=== PATIENT | male | born 1990 | race Caucasian/White ===

== ENCOUNTER 2016-12-02 09:02 | Day surgery (SDC) | payer OTHER ==
[~2016-12-02] VITALS: Ht 193 cm; Wt 108.0 kg
[2016-12-02] VITALS (12 sets, daily range): BP systolic 122–134; BP diastolic 55–87; PULSE 75–87; RESP 13–19; O2SAT 96–100
[~2016-12-02 09:02] MED LIST: CeFAZolin Inj 2 GM in IV Premix 1 EACH IV ONE; IBUP200C PO; Lactated Ringer's 1,000 ML IV SCH
[2016-12-02] MEDS ORDERED: Ondansetron 2 mg/mL 2 mL Inj ONE (09:03)
[2016-12-02] MEDS ORDERED: Propofol 10,000 mCg/mL 20 mL Inj ONE (09:03)
[2016-12-02] MEDS ORDERED: fentaNYL-PF 50 mCg/mL 2 mL Inj ONE (09:03)
[2016-12-02] MEDS ORDERED: Dexamethasone 4 mg/mL Inj ONE (09:03)
[2016-12-02] MEDS ORDERED: Lidocaine PF 1% 30 mL Inj ONE (09:03)
[2016-12-02] MEDS ORDERED: Lactated Ringer's 1,000 ML IV ONE (09:55)
--- NOTE | 2016-12-02 10:07 | PCM.HPANE ---
Patient Data Date of Service: Dec 02, 2016 Surgeon Admitting Provider: Attending Provider:Darvin Brito MD Primary Care Physician:Lukas Other Provider:Julia Bentley Anesthesia Reason for Visit Right Knee Meniscus Tear Ht/WT & BMI Height (Feet): 6 Height (Inches): 4.00 Weight (Kilograms): 108.040 Body Mass Index 29.00 Allergies Coded Allergies: nickel (Verified Allergy, Unknown, contact dermatitis, 11/27/16) Past Anesthesia History Anesthesia History: Denies:: Abnormal Airway, Anesthesia Reactions, Difficult Intubation, Fam Anesthesia Reaction Diabetes History Hx Diabetes?: No MRSA MRSA: No Medications Hypertension Medication: No Home Meds Incl Beta Munira: No Reported Medications Ibuprofen 200 Mg [id number] Mg PO QID PRN For Pain Ref 0 11/27/16 History History of ENT Problems?: No HEENT History: Denies:: Abnormal Airway Cataracts Difficult Intubation Dysphagia Glaucoma Hearing Problem Sinus Problem TMJ Hx of Heart Problems?: No Cardiovascular History: Denies:: AICD Abdominal Aortic Aneurism Atrial Fibrillation Chest Pain Congestive Heart Failure Coronary Artery Disease Edema Heart Murmur Hypertension Irregular Heartbeat Pacemaker Peripheral Vascular Hx of Respiratory Problem?: No Respiratory History: Positive for:: Asthma (as child, not currently sx) Denies:: COPD Emphysema Oxygen Administration Pneumonia Tuberculosis Use of C-PAP Machine Use of Inhalers / NEBS Hx Neurologic Problems?: No Neurological History: Denies:: Alzheimer's Disease CVA Dementia Dizziness Headaches Multiple Sclerosis Parkinson's Disease Seizures TIA Hx of GI Problems?: No Gastrointestinal History: Denies:: Cirrhosis Gall Bladder Disease Gastroesphageal Reflux Gastrointestinal Bleeding Heartburn Hepatitis Hiatal Hernia Liver Disease Hx of Problems?: No Genitourinary History: Denies:: Kidney Stones Urinary Tract Infection Male Hx: Denies:: Prostate Problems Scrotal Mass Skin History: Denies:: History Skin Disorders? Pressure Ulcers Hx Musculoskeletal Problems?: Yes Musculoskeletal History: Positive for:: Back Injury (back pain) Musculoskeletal Trauma (right knee current admission problem) Osteoarthritis Denies:: Degenerative Joint Fibromyalgia Joint Replacement Myasthenia Gravis Hx of Psycho/Social Problems?: No Psycho Social History: Denies:: Anxiety Hx Depression Hx Surgeries?: Yes (right ankle surgery) Hx Any Other Health Problems?: Yes Other History: Denies:: Cancer Thyroid Disease History Blood Transfusions: Positive for:: Accept Blood Products? Denies:: Blood Transfusions Hx Diabetes: No Hx Alcohol Use: NoHx Substance Use: NoHave You Smoked inLast 12 mo: Yes ( less than 1/2 pack day) Stop/Bang S-Snoring: Do You Snore Loudly: No T-Tired: feel tired, fatigued: No O-Obsered: Observed not breath: No P-Blood Pressure: treated: No B- Body Mass Index > 35 kg/m2: No A- Age over 50: No N- Neck Large Circumference: No G- Gender Male: Yes AMINA Total Score: 1 AMINA Risk Assessment: Low Risk, <3 Yes Risk Assessment Category Category 1A: Patient has history of documented sleep apnea, and HAS NOT received any narcotic, sedative or anesthesia administration during this stay. Category 1B: Patient has history of documented sleep apnea, and HAS received any narcotic , sedative or anesthesia administration during this stay Category 2: Patient has SUSPECTED Obstructive Sleep Apnea, and HAS received any narcotic , sedative or anesthesia administration during this stay. Category 3: Patient has SUSPECTED Obstructive Sleep Apnea and HAS NOT received narcotic, sedative or anesthesia administration during this stay. Category 4: Outpatient in Procedural Areas with known sleep apnea or who screen positive for High Risk via the STOP/BANG questionnaire. Exam Exam Vital Signs Vital Signs Date Time Temp Pulse Resp B/P Pulse Ox O2 Delivery O2 Flow Rate FiO2 12/02/16 09:56 35.8 87 18 134/80 98 Room Air General Appearance: Alert, Oriented X3, Cooperative, No Acute Distress HEENT/AIRWAY: MP 2 Lungs: Clear to Auscultation, Normal Air Movement Heart: Exam Unremarkable, Regular Rate/Rhythm, No Murmurs/Rubs/Gallops Meds/Labs/Diagnostics Admission Meds Current Medications Lactated Ringer's (Lr) 1,000 ml @ ud STK-MED ONCE IV Last administered on 12/02t 09:55; Start 12/02/16 at 09:55; Stop 12/02/16 at 09:56; Status DC Plan Impression Patient chart reviewed, patient interviewed and anesthestic plan with risks, benefits, and alternatives discussed, and informed consent obtained. NPO Status: 12/01@2100, water @0700 ASA Physical Status: ASA2 Mod Systemic Disease Anesthetic Plan: GA Bene/Risks/Altern/Consents: Yes HP Complete Prior to Induction: Yes Reese Deng MD 15, 2017 10:07
[2016-12-02] MEDS ORDERED: HYDROcodone-APAP 5-325 mg Tablet PO PRN (10:10)
[2016-12-02] MEDS ORDERED: Ketorolac 15 mg/mL Inj IVPUSH ONE (10:10)
--- NOTE | 2016-12-02 10:12 | PCM.ORTHOP ---
Orthopedic Operative Report Date of Service: Dec 02, 2016 Pre Operative Diagnosis right knee medial meniscus tear Post Operative Diagnosis same Procedure Right knee arthroscopy, partial medial meniscectomy, chondroplasty, partial synovectomy Surgeon Surgeon: Darvin Brito MD Assistants: None Indication for Procedure Right knee medial meniscus tear Findings Per dictation Details of Procedure - right knee arthroscopy, -right knee, partial medial meniscectomy -right knee, chondroplasty -right knee, partial synovectomy INDICATIONS: Clinton Tracy is a 26-year-old male who has had a history of right knee pain. The patient has failed conservative management. X-rays show the tibiofemoral joints to be preserved with minimal DJD. MRI was obtained which reveals medial meniscus tear. The patient has had persistent symptoms and is now brought to the operating room for arthroscopy. The risks, benefits, and alternatives of surgery were discussed with the patient. The risks included but were not limited to infection, bleeding, damage to vessels and nerves, loss of motion, continued pain, re-tear of the meniscus, deep venous thrombosis, and complications due to anesthesia including nerve injury, myocardial infarction, stroke, , etc. The patient stated understanding of the nature of the surgical procedure and gave written and verbal consent to proceed. PROCEDURE: The patient was brought to the operating room and placed supine on the operating room table. After the administration of general anesthesia the patient was placed in the supine position. Examination of the knee revealed no evident instability with a trace effusion. All prominences were padded with appropriately and neurovascular structures protected. The right knee was confirmed to be the appropriate site following surgical time out. The right lower extremity was examined under anesthesia. Range of motion was 0-135 degrees. There was no varus or valgus or anterior or posterior instability. The right lower extremity was then prepped and draped in the usual fashion. Sterile prep and drape was then undertaken of the knee. The knee joint was injected with 20 ccs of 1% Lidocaine, along with 3 ccs of 1 % lidocaine in the medial and lateral portal sites respectively. A standard anterolateral parapatellar stab wound was created. The knee joint was entered with a blunt- tipped obturator, followed by the 30-degree video arthroscope. An anteromedial portal was established under arthroscopic control. A routine arthroscopic survey was performed. The patellofemoral joint showed grade 1/2 chondromalacia which was debrided down to stable tissue with a shaver. The medial joint space was then entered. The articular surfaces showed grade 2/ 3 chondromalacia. A posterior horn medial meniscal tear was noted with a small flap. The shaver and the cutting instruments were inserted, and a debridement of the meniscus back to healthy tissue was then undertaken. The ACL and PCL were noted to be intact. The lateral joint space was then entered. The articular surfaces were intact with grade 1/2 chondromalacia. There was no tear to the lateral aspect of the lateral meniscus. The meniscus was stable to probing.. Moderate synovitis was noted anteriorly in the medial and lateral compartment and debrided with a shaver. The knee was irrigated with an additional 2 liters of lactated Ringer's solution. Excess fluid was drained. The portals were closed with 3-0 nylon as well as xeroform. The knee was injected with 20 mL of 0.5% ropivacaine. A dry sterile dressing was applied, followed by an SOURAV hose, soft roll, and ADRIAN bandage. The patient was awakened in the operating room and transported to the recovery room in satisfactory condition. The patient appeared to tolerate the procedure well. At the completion of surgery the patient had soft compartments , palpable pulses, and brisk capillary refill. There were no complications noted. Grafts, Implants: None Complications There were no periprocedural complications identified. Condition Stable Anesthetic Administered: GA Catheters: None Output, Estimated Blood Loss: 5 Blood Admin during surgery: No Surgical Cast or Splint: Other Surgical Specimen Removed: No Specimen sent to Pathology: No copies to: Darvin Brito MD, Christopher L MD Dec 02, 2016 10:12
[2016-12-02] MEDS ORDERED: Ropivacaine-PF 0.5% 30 mL Inj INFILTRATE ONE (10:26)
[2016-12-02] MEDS ORDERED: MetoCLOpramide 5 mg/mL 2 mL Inj IVPUSH PRN (10:30)
[2016-12-02] MEDS ORDERED: Atropine 0.4 mg/mL Inj IVPUSH PRN (10:30)
[2016-12-02] MEDS ORDERED: EPHEDrine Sulfate 50 mg/mL Inj IVPUSH PRN (10:30)
[2016-12-02] MEDS ORDERED: HYDROmorphone 1 mg/mL Inj IVPUSH PRN (10:30)
[2016-12-02] MEDS ORDERED: Lactated Ringer's 500 ML IV PRN (10:30)
[2016-12-02] MEDS ORDERED: Phenylephrine 10,000 mCg/mL Inj IVPUSH PRN (10:30)
[2016-12-02] MEDS ORDERED: Lactated Ringer's 1,000 ML IV SCH (10:30)
[2016-12-02] MEDS ORDERED: Ondansetron 2 mg/mL 2 mL Inj IVPUSH PRN (10:30)
[2016-12-02] MEDS ORDERED: Labetalol 5 mg/mL 4 mL Inj IV PRN (10:30)
[2016-12-02] MEDS ORDERED: hydrALAZINE 20 mg/mL Inj IVPUSH PRN (10:30)
[2016-12-02] MEDS ORDERED: fentaNYL-PF 50 mCg/mL 2 mL Inj IVPUSH PRN (10:30)
--- NOTE | 2016-12-02 10:52 | PCM.ANEP1 ---
Post Anesthesia Phase 1 PACU Phase 1 Assessment Date of Service: Dec 02, 2016 Vital Signs 36 135/59 91 16 97% RA Anesthetic Administered: GA Level of Alertness: Awake, talking MOORE's with Equal Strength: Yes Pain: Yes Pain Scale Score: 2 Nausea or Vomiting: No Lungs: Clear to Auscultation, Normal Air Movement Reese Deng MD Dec 02, 2016 10:52
--- NOTE | 2016-12-02 11:48 | PCM.ANEP2 ---
Post Anesthesia Evaluation ASA/CMS Post Anesthesia Date of Service: Dec 02, 2016 VS in Patient's Normal Range?: Yes Resp Stable; Airway Patent?: Yes CV Function & Hydration Stable: Yes Mental Status Recovered?: Yes Pain control Satisfactory?: Yes N/V Control Satisfactory?: Yes Reese Deng MD Dec 02, 2016 11:48
[2016-12-02] MEDS ORDERED: oxyCODONE-Acetamin 5-325 mg Tablet PO ONE (12:26)
[2016-12-02] MEDS ORDERED: oxyCODONE-Acetamin 5-325 mg Tablet PO PRN (12:55)
== END 2016-12-02 23:59 | disposition home or self-care (01) ==
LOC: SAS 09:02
PROVIDERS: ATTEND Orthopaedic Surgery
DX: S83.241A Other tear of medial meniscus, current injury, right knee, initial encounter (principal); X50.0XXA Overexertion from strenuous movement or load, initial encounter; Y93.9 Activity, unspecified; Y92.61 Building [any] under construction as the place of occurrence of the external cause; Y99.0 Civilian activity done for income or pay; M22.41 Chondromalacia patellae, right knee; M65.861 Other synovitis and tenosynovitis, right lower leg; F17.210 Nicotine dependence, cigarettes, uncomplicated
CPT/HCPCS: 29881; J0690; J1100; J1885; J2250; J2405; J2795; J3010; J7120